=== PATIENT | male | born 1980 | race Caucasian/White ===

== ENCOUNTER 2018-09-05 14:31 | Emergency (ER) | payer MEDICAID ==
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
[2018-09-05 15:48] VITALS: BP 127/73
== END 2018-09-05 15:54 ==
LOC: EDUNIT#
DX: S01.81XA Laceration without foreign body of other part of head, initial encounter (principal); S16.1XXA Strain of muscle, fascia and tendon at neck level, initial encounter; Y35.811A Legal intervention involving manhandling, law enforcement official injured, initial encounter; Y93.02 Activity, running